=== PATIENT | male | born 2000 | race Hispanic/Latino ===

== ENCOUNTER 2018-11-27 01:39 | Observation (INO) | payer OTHER ==
[2018-11-27] MEDS ORDERED: Acetaminophen 500 MG TAB ONE (03:59)
[2018-11-27] MEDS ORDERED: Ketorolac Tromethamine 30 MG/ML VIAL ONE ×2 (03:59→10:41)
[2018-11-27] MEDS ORDERED: HYDROcodone/Acetaminophen 5/325 mg Tablet PO PRN ×2 (04:54)
[2018-11-27] MEDS ORDERED: Acetaminophen 325 MG TAB PO PRN (04:54)
[2018-11-27] MEDS ORDERED: Ondansetron ODT 4 MG TAB SL PRN (04:54)
[2018-11-27] MEDS ORDERED: Ondansetron PF 4 MG/2 ML Vial IVP PRN (04:54)
[2018-11-27 04:55] VITALS: BMI 21.2
[2018-11-27] MEDS ORDERED: Morphine 4 MG/ML VIAL SLOW IVP PRN (04:55)
[2018-11-27] MEDS ORDERED: Bupivacaine HCl 0.5%/Epinephrine 1:200,000/PF 30 ml Vial ONE (07:49)
[2018-11-27] MEDS ORDERED: Fentanyl 100 MCG/2 ML VIAL ONE (08:20)
[2018-11-27] MEDS ORDERED: Midazolam HCl 2 mg/2 ml Vial ONE (08:20)
[2018-11-27] MEDS ORDERED: PROPOFOL 200 MG/20 ML VIAL ONE (10:41)
[2018-11-27] MEDS ORDERED: Ondansetron PF 4 MG/2 ML Vial ONE (10:41)
[2018-11-27] MEDS ORDERED: Lidocaine 1% PF 5 ML VIAL ONE (10:41)
[2018-11-27] MEDS ORDERED: Glycopyrrolate 0.2 MG/ML 5 ML SYRINGE ONE (10:41)
[2018-11-27] MEDS ORDERED: Rocuronium Bromide 10 MG/ML (10ML VIAL) ONE (10:41)
--- NOTE | 2018-11-27 11:03 | HP ---
DATE OF CONSULTATION: 11/27/2018 CHIEF COMPLAINT: Right arm pain. HISTORY OF PRESENT ILLNESS: Mr. Daniels is a 18-year-old male, who is right-hand dominant, status post arm wrestling, sustained an injury to his right arm, happened this morning. The patient presented to the ED with increasing pain and complained of numbness to his small and ring finger. The patient has no preceding pain. No night pain. Denies weight gain or weight loss. He has no other functional complaints until this incident. PAST MEDICAL HISTORY: None. PAST SURGICAL HISTORY: None. ALLERGIES: NO KNOWN DRUG ALLERGIES. MEDICATIONS: None. SOCIAL HISTORY: Nonsmoker. No illicit drug use. He occasionally drinks. 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. REVIEW OF SYSTEMS: Noncontributory. PHYSICAL EXAMINATION: VITAL SIGNS: Afebrile, stable. GENERAL: Alert and oriented male, in no acute distress, resting comfortably in bed. EXTREMITIES: Right upper extremity splint clean, dry, and intact. No open wounds per previous report. The patient has sensation diminished to the ring and small fingers in the ulnar distribution. He is able to abduct, adduct, flex, and extend his fingers, flex and extend his thumb. Motor and sensation are intact to the AIN, PIN, medial, radial distributions. Ulnar motor function is intact. 2+ radial pulse. IMAGING DATA: Radiographs show a spiral distal third humerus fracture extending into the superior aspect of the supracondylar region, right near the olecranon fossa, proximally to the spiral groove. IMPRESSION: Right distal humerus, supracondylar humerus fracture, spiral fracture. ASSESSMENT AND PLAN: I discussed with the patient and his father, the risks and benefits of open reduction and internal fixation of his right distal humerus fracture, I discussed conservative measures can be utilized, although this more distal extended, sometime more difficult to get the bone to heal in the correct position, it is not a true shaft fracture, I feel that this likely requires operative fixation to improve the outcome. I did discuss that I would have to expose the ulnar nerve as well as the radial nerve for this procedure and that stretch injuries can occur that can take months to years to completely resolve. He currently already has a stretch injury in his ulnar nerve. I discussed that the plan will be to plate either dual column versus a bi-columnar plating to help to better expose the patient's humeral shaft fracture. I will plan on doing lateral extended approach, paratricepital approach with exposure of the radial nerve as well as the patient's ulnar nerve. The patient understands that this is a complex procedure, understands risks and benefits to include pain, scar, bleeding, infection, damage to vital structures, decreased range of motion and strength, fracture above or below the implants, damage to vital structures, nerves, arteries, tendons, nerve stretch injury, extension deficit, loss of life or limb. The patient understood these risks and benefits and elects to proceed. Take the patient back and we will plan for open reduction and internal fixation of his humerus fracture. I discussed with him and his family that this could be done in a nonurgent setting that they could elect to do it later. I did discuss that in a subacute for seven days that the swelling starts to increase, but the dissection planes are slightly better. They understand all this and they would like to proceed this morning. Job ID: [id number] MTDD
--- NOTE | 2018-11-27 11:53 | RAD ---
TWO VIEWS RT HUMERUS: INDICATION: Intraoperative imaging of ORIF. FINDINGS: Plate and screw fixation traverses distal humeral diaphyseal fracture site. Alignment is near-anatomi c. Numerous extrinsic artifacts are present. IMPRESSION: Intraoperative imaging for ORIF of right humeral fracture. Transcribed Date/Time: 11/27/2018 12:53 PM
[2018-11-27] MEDS ORDERED: traMADol HCl 50 MG TAB PO PRN ×2 (12:39)
[2018-11-27] MEDS ORDERED: Fentanyl 100 MCG/2 ML VIAL SLOW IVP PRN (12:40)
[2018-11-27] MEDS ORDERED: HYDROcodone/Acetaminophen 10/325 mg Tablet PO PRN (12:40)
--- NOTE | 2018-11-27 13:09 | RAD ---
TWO VIEWS RIGHT HUMERUS: HISTORY: Numbness and pain right arm after hearing a pop while wrestling. FINDINGS: There is a comminuted fracture involving the distal diaphysis of the humerus with the fracture extend ing to the metadiaphysis. There is apex lateral angulation of the fracture fragments with separation of the fracture fragments. No dislocation is appreciated. IMPRESSION: Comminuted fracture with mild separation of fracture fragments as well as mild angulation of fracture fragments involving the distal right humeral diaphysis. POS: OFF
--- NOTE | 2018-11-27 13:13 | RAD ---
THREE VIEWS RIGHT SHOULDER: HISTORY: Numbness and pain upon movement of right humerus. The patient states heard a pop in arm while wrestl ing. FINDINGS: The coracoclavicular distances are within normal limits. There is a suggestion of slight elevation o f the distal right clavicle, but this is probable within normal limits for the patient as opposed to an acromioclavicular joint separation. No fracture or dislocation is seen involving the right should er. IMPRESSION: No acute osseous abnormality. POS: OFF
[2018-11-27] MEDS: HYDROcodone/Acetaminophen 10/325 mg Tablet PO PRN (15:14)
[2018-11-27] MEDS: CEFAZOLIN 2 GM in Premix Bag 1 BAG IVPB SCH (16:41)
--- NOTE | 2018-11-27 16:43 | OP ---
DATE OF PROCEDURE: 11/27/2018 POSTOPERATIVE DIAGNOSIS: Right humeral shaft with extension into supracondylar region humerus fracture. POSTOPERATIVE DIAGNOSIS: Right humeral shaft with extension into supracondylar region humerus fracture. PROCEDURES PERFORMED: 1. Open reduction and internal fixation of supracondylar humerus fracture. 2. Ulnar transposition. WAREHOUSE OPERATIONS ASSOCIATE: Ev Lang PA-C ANESTHESIA: MAC. The patient received a general endotracheal tube intubation with 20 mL of 0.5% epi with epinephrine 20 mL. ESTIMATED BLOOD LOSS: 350 mL. ANTIBIOTICS: Ancef 2 g. IMPLANTS: Synthes 8-hole lateral distal humerus plate with 2 to 4 lag screws, seven 3.5 lag screws, and one 3.5 locking screw. COMPLICATIONS: None. HISTORY PRESENT ILLNESS: Mr. Daniels is a 18-year-old male, who was arm wrestling, sustained a right humeral shaft fracture with distal humerus fracture last night. He denied preceding pain or any night pain or any other symptoms, weight gain, or weight loss, preceding this has external rotation moment, he broke his humerus. I discussed with the patient. He had some numbness in the ulnar nerve that I would have to expose and manipulate the nerve as well as the radial nerve. The risks and benefits to that include pain, scar, bleeding, infection, damage to vital structures, damage to nerves, wrist drop, need for resolution of the numbness and tingling, loss of life or limb. The patient understood risks and benefits of the procedure, elected to proceed. DESCRIPTION OF PROCEDURE: Time-out was performed designating the patient's right upper extremity as the operative site based on site, consents, and marking. He was placed in a lateral position with his axillary roll. His bony prominences were well padded. I made a long posterior incision over the skin proximally to distally. We used cautery and knife to expose subcutaneously. The patient had a very thin subcutaneous layer. After completely exposing medially and laterally, we started medially. We came down, found an Franks's fascia, dissected down, and found the nerve, dissected, and bluntly dissected to ensure that it was protected throughout its course, came down to the intermuscular septum. I used the medial epicondyle with cautery to come down on the bone fragments and bone dissected both with a [place] as well as my finger to dissect the fractures off as well as over the triceps posteriorly and went laterally and dissected, came down the lateral border, coming down from the ECRB, and began in the brachioradialis, which I bluntly dissected, came down, felt that the radial nerve, saw the branch, lateral and brachial branch, used that to protect and guide back, dissected in between the triceps and the brachioradialis proximally, and eventually the lateral head near the insertion of the patient's deltoid and dissected that off from lateral to medial, protecting the radial nerve throughout the course using blunt dissection to expose the proximal shaft. We found a lag piece, a long spiral piece, which we used to clean with curette, washed out, placed 2 to 4 lag screws across, had overall good fixation of that piece. We then bridged that construct, placing a long 8-hole plate under fluoroscopic guidance. We placed 2 screws proximally and hold the plate using clamps. We have tried to lag the fracture fragments together, but it still back to open a little bit. Therefore, we placed a 3.5 screw within the shaft proximally. We then sequentially placed one more 3.5 locking screw compression screw distally and then one more 3.5 screw. We compressed through the patient's distal segment. We used three 3.5 screws to compress the plate through, sequentially drilling proximally, and using the plate to compress the fracture. We removed our lag screw within the 2 large fragments. We washed. We closed the lateral side, closing the fascia, protecting the radial nerve distally, and closing the fascia over, leaving the proximal section loose. Ulnarly, the patient had a very small position between his trochlea and his Franks's fascia. Therefore, I elected to transpose the nerve. We used the fascial planes of the medial epicondyle to close the triceps as well as intermuscular septum proximally, made sure the triceps was transposed anteriorly. The patient had almost no fat, therefore it will be slightly prominent subcutaneous, but there was no other way. The nerve did not want to stay and likely transpose , would naturally sublux through the joint, did not want to over-tension it. We washed. We closed subcu with 2-0 and odessa for the longest skin incision, placed the patient in soft tissue dressing and a sling. The patient will begin elbow, wrist, and hand motion. I will follow him up in-house. The patient received 24 hours antibiotics, p.o. pain medications, and to be discharged home tomorrow if he is doing well. Job ID: [id number] [facility]
[2018-11-27] MEDS ORDERED: FLU VACC QS2019-20(6MOS UP)/PF 60 MCG/0.5 ML SYRINGE IM ONE (21:00)
[2018-11-28] MEDS: CEFAZOLIN 2 GM in Premix Bag 1 BAG IVPB SCH ×2 (00:23→09:33)
[2018-11-28] MEDS: HYDROcodone/Acetaminophen 10/325 mg Tablet PO PRN (05:59)
--- NOTE | 2018-11-28 09:13 | DIS ---
DATE OF ADMISSION: 11/27/2018 DATE OF DISCHARGE: 11/28/2018 This is Ev Lang PA-C dictating a report for Melo Alarcon MD. REASON FOR ADMISSION: Right humerus fracture. PREOPERATIVE DIAGNOSIS: Right humeral shaft with extension into supracondylar humerus fracture. POSTOPERATIVE DIAGNOSIS: Right humeral shaft with extension into supracondylar humerus fracture. PROCEDURES PERFORMED: 1. Open reduction internal fixation of supracondylar humerus fracture. 2. Ulnar transposition. BRIEF HOSPITAL COURSE: This is a 18-year-old male, who was arm wrestling and sustained a right humeral shaft fracture with distal humerus fracture the night before his admission. He denied any preceding pain or pain with any other symptoms. He was indicated for the above-mentioned procedure. He had some numbness in his ulnar nerve initially before the surgery. The above-mentioned procedure was performed. The patient tolerated the surgery well and postoperatively was placed in the surgical [place]-3 floor. He received postoperative analgesia as well as postoperative antibiotics. He worked with Occupational therapy on gentle elbow range of motion as well as wrist range of motion. His pain was controlled with p.o. pain medications. No complications were incurred during his hospital stay. On postoperative day #1, he was discharged home with family. DISCHARGE DISPOSITION: Home. DISCHARGE CONDITION: Stable. DISCHARGE INSTRUCTIONS: The patient will leave surgical dressings clean, dry, and intact into the right arm until followup with Dr. Alarcon. He may remove the sling for gentle range of motion of the right arm. He will follow up with Dr. Alarcon in 2 weeks' time. DISCHARGE MEDICATIONS: See MAR. Job ID: [id number]
[2018-11-28 12:22] VITALS: BP 118/72; TEMP 98.5
== END 2018-11-28 14:31 | disposition home or self-care (01) ==
LOC: ERS 01:39 → SJJU 04:29
PROVIDERS: ADMIT Orthopaedic Surgery; ATTEND Orthopaedic Surgery
PROC: 0PSF04Z Reposition Right Humeral Shaft with Internal Fixation Device, Open Approach (ICD-10-PCS; principal; 2018-11-27)
PROC: 01S40ZZ Reposition Ulnar Nerve, Open Approach (ICD-10-PCS; 2018-11-27)
DX: S42.411A Displaced simple supracondylar fracture without intercondylar fracture of right humerus, initial encounter for closed fracture (principal); S42.301A Unspecified fracture of shaft of humerus, right arm, initial encounter for closed fracture; X50.0XXA Overexertion from strenuous movement or load, initial encounter
CPT/HCPCS: 76000; 96365; 96366; C1713; G0378; J0670; J0690; J1885; J2001; J2250; J2405; J2704; J3010